=== PATIENT | male | born 1935 | race Caucasian/White ===

== ENCOUNTER → 2016-03-25 | Outpatient (CLI) | payer MEDICARE, BC, MEDICAID ==
[~2016-03-25] MED LIST: ADVIL 200MG TA200 MG PO; ALBUTEROL SULFAT3 M3 IH; ALBUTEROL0.83 MG/ML IH; ALDACTONE 25MG25 M1; ALDACTONE 25MG25 M1 PO; ALEVE 220MG220 MG PO; AMBIEN 10MG10 MG PO; ANDRO GEL TOP; ANDROGEL1% TP; ANTI-DIARRHEAL2 MG PO; ANTI-INFLAMMATORY PO; ANTIVERT 25MG25 MG PO; ANUSOL-HC SUPPO25 MG RC; ASPI325T6 PO; ASPIR-LOW81 MG PO; ASPIRIN 81M81 MG/TA2 PO; ASPIRIN E.C. 8181 MG PO; ATARAX 25MG25 MG/TAB PO; ATIVAN 1MG T1 MG/TAB PO; ATROVENT I0.2 MG/1 M IH; ATROVENT INHALE14 GM IH; AZILECT1 M1 PO; AZILECT1 MG PO; BACTRIM DS 8001 TAB PO; BENADRYL50 MG PO; BENICAR40 MG PO; BROVANA15 MCG/2 M IH; BUMEX 1MG TA1 MG/TA1 PO; BUMEX2 MG PO; BYSTOLIC10 MG PO; BYSTOLIC5 MG PO; CADUET 10 MG-201 TAB PO; CARDI-OMEGA1000 MG PO; CARDURA 2MG2 MG PO; CEPHALEXIN500 M1 PO; CETAPHIL1 CRE TP; CIPRO 250MG TA250 MG PO; COLACE 100100 MG/CAP PO; COQ10250 MG PO; COREG 6.256.25 MG/TA PO; COREG12.5 MG PO; CORTISONE; CORTISONE CREAM; COZAAR100 MG PO; CYANOCOBAL1000 MCG/2 IM; CYMBALTA 30MG30 MG PO; CYMBALTA30 MG PO; CYMBALTA60 MG PO; DEPO-TESTOS200 MG/ML IM; DITROPAN XL15 MG PO; DOXAZOCIN PO; DOXAZOSIN4 MG PO; DULCOLAX S10 MG/SUPP RC; DULCOLAX10 MG RC; EPA FISH OIL1000 MG PO; FLOMAX 0.40.4 MG/CAP PO; FLOMAX0.4 MG PO; FLONASE NASAL S16 GM INH; FLONASE NASAL S16 GM NS; FLONASEALLERGY NS; FOLIC ACID 11 MG/TA1 PO; FUROSEMIDE20 MG PO; FUROSEMIDE40 MG PO; GENTAMICIN180 MG/501 NS; GENTAMICIN180 MG/502 NS; HYDROCORTISO28.35 GM TP; HYDROCORTISON28.4 GM TP; HYZAAR; HYZAAR 50-12.1 UDTAB PO; IRON325 MG PO; K-DUR 10 MEQ T10 MEQ PO; K-DUR 2020 MEQ PO; KLOR-CON M2020 MEQ PO; LANTUS100 U/ML SC; LANTUS100 U/ML SQ; LASIX 20MG TABL20 MG PO; LASIX20 MG PO; LEVEMIR FLEX100 U/ML SQ; LEVSIN 0.10.125 MG/T PO; LEVSIN0.125 M1 PO; LEXAPRO 10MG10 MG PO; LOFIBRA160 MG PO; MACROBID 1100 MG/CAP PO; MASON NATURAL2000 IU PO; MELOXICAM15 MG PO; METFORMIN500 MG PO; METHYLIN PO; MILK OF MA1200 MG/5 PO; MILK OF MA400 MG/52; MILK OF MA400 MG/52 PO; MINOCYCLIN100 MG/CAP PO; MIRALAX PA17 GM/Dose PO; MIRAPEX 0.0.125 MG/T PO; MIRAPEX 1MG PO; MIRAPEX PO; MIRAPEX0.5 MG PO; MOBIC 7.5MG7.5 MG PO; MUCINEX 60600 MG/TA1 PO; NATURE'S BL400 IU/ML PO; NEPHROCAP PO; NIACIN PO; NIACIN500 MG PO; NORCO 325 MG-101 TAB PO; NORCO 325 MG-51 TAB PO; NORCO 325 MG-7.1 TAB PO; NORVASC 5MG5 MG/TAB PO; NS INT FLUSH 1010 ML IV; OMEPRAZOLE40 MG PO; POTASSIUM CH2 MEQ/ML PO; PRAMIPEXOLE PO; PREDNISONE20 MG PO; PRIL40 PO; PRILOSEC40 MG PO; PROVIGIL200 MG PO; PROZAC 10MG10 MG PO; PROZAC 20MG20 MG PO; PULMICORT0.5 MG/2 M IH; PYRIDIUM 100MG100 MG PO; RAPAFLO8 MG PO; RESTORIL 1515 MG/CAP PO; RESTORIL30 MG PO; ROXICODONE 55 MG/TAB PO; SENNA-LAX8.6 MG PO; SENNA8.6 MG PO; SENOKOT S 50 MG1 TAB PO; SENOKOT8.6 MG PO; SEPTRA DS 8001 TAB PO; SINEMET 10/101 UDTAB PO; SINEMET 25/101 UDTAB PO; SINEMET CR1 UDTAB.S1 PO; SINEQUAN 1010 MG/CAP PO; SINGULAIR 110 MG/TAB PO; SPIRONOLACTONE50 MG PO; SYNTHROID0.05 MG/TA PO; TEFLARO400 MG IV; TOVIAZ4 MG PO; TRAZODONE50 MG PO; TRIAMCINOLONE AC0.13 TP; TRICOR145 MG PO; TRIPLE ANTIBIOT1 O19 TP; TYLENOL 325MG325 MG PO; TYLENOL 500MG500 MG PO; TYLENOL 8 HR PO; VANCOCIN H250 MG/CAP PO; VANCOMYCIN750 MG/150 IV; VITAMIN B COMPL1 T16 PO; VITAMIN B COMPL1 TA1 PO; VITAMIN C500 MG PO; VITAMIN D 1001000 IU PO; VITAMIN D 400400 IU PO; VITAMIN D2000 I1 PO; VITAMIN D32000 IU PO; WELLBUTRIN 100100 MG PO; WELLBUTRIN 75MG75 MG PO; XANAX .25M0.25 MG/TA PO; XANAX 0.5MG0.5 MG PO; XOPENEX 1.1.25 MG/3 IH; XOPENEX1.25 MG/0. IH; XYZAL5 MG PO; ZANTAC 150MG T150 MG PO; ZAROXOLYN 2.52.5 MG PO; ZOFRAN 4MG T4 MG/TAB PO; ZYRTEC 10MG10 MG PO; [UNRECOGNIZED DRUG - CODE] IV; [UNRECOGNIZED DRUG - OTHER] PO; [UNRECOGNIZED DRUG - OTHER] TP
[2016-03-25 12:15] LABS: CALCIUM 9.9 mg/dL (8.4-10.2); CREATININE, serum 1.73 mg/dL (0.66-1.25)
== END ==
LOC: ZCOL.LAB 11:34
DX: N18.4 Chronic kidney disease, stage 4 (severe) (principal); R60.0 Localized edema; I10 Essential (primary) hypertension

== ENCOUNTER → 2016-04-16 | Outpatient (CLI) | payer MEDICARE, BC, MEDICAID ==
[2016-04-16 12:13] LABS: CALCIUM 9.7 mg/dL (8.4-10.2); CREATININE, serum 2.52 mg/dL (0.66-1.25); POTASSIUM 4.5 mmol/L (3.4-5.0)
== END ==
LOC: ZCOL.LAB 10:37
PROVIDERS: Internal Medicine
DX: R60.9 Edema, unspecified (principal)

== ENCOUNTER → 2016-05-12 | Outpatient (CLI) | payer MEDICARE, BC, MEDICAID ==
[2016-05-12 10:51] LABS: BASO % 0.4 % (0.0-2.0); EOS # 0.2 (0.0-0.7); EOS % 3.1 % (0-4.0); GRAN # 5.4 (1.4-6.5); GRAN % 80.7 % (42.2-75.2); HEMATOCRIT 40.3 % (42.0-52.0); HEMOGLOBIN 12.9 g/dl (13.5-18.0); LYMPH # 0.6 (1.2-3.4); LYMPH % 8.4 % (20.0-51.0); MEAN CELL VOLUME 97 fl (80.0-100.0); MEAN CORPUSCULAR HEMOGLOBIN 31 pg (27.0-31.0); MEAN CORPUSCULAR HGB CONC 32 g/dl (33.0-37.0); MEAN PLATELET VOLUME 10.7 fl (7.4-10.4); MONO # 0.5 (0.1-0.6); PLATELET COUNT 205 K/mm3 (130-400); RED BLOOD COUNT 4.16 M/mm3 (4.20-5.60); REDCELL DISTRIBUTION WIDTH-CV 15.1 % (11.5-14.5); WHITE BLOOD COUNT 6.7 K/mm3 (4.8-10.8)
[2016-05-12 11:25] LABS: ADJUSTED CALCIUM 10.2 mg/dL (8.4-10.2); ALBUMIN 3.6 gm/dL (3.5-5.0); BILIRUBIN,TOTAL 0.7 mg/dL (0.0-1.0); CALCIUM 9.9 mg/dL (8.4-10.2); CREATININE, serum 1.74 mg/dL (0.66-1.25); TOTAL PROTEIN 6.5 gm/dL (6.4-8.2)
[2016-05-12 11:56] LABS: THYROID STIMULATING HORMONE 5.14 uIU/mL (0.465-4.680)
[2016-05-12 13:38] LABS: PSA-TOTAL 0.41 ng/mL (0-4)
== END ==
LOC: ZCOL.LAB 10:16
PROVIDERS: Internal Medicine
DX: Z01.89 Encounter for other specified special examinations (principal)
CPT/HCPCS: G0103

== ENCOUNTER → 2016-05-29 | Outpatient (CLI) | payer MEDICARE, BC, MEDICAID ==
[2016-05-29 13:29] LABS: CALCIUM 10.1 mg/dL (8.4-10.2); CREATININE, serum 1.94 mg/dL (0.66-1.25)
== END ==
LOC: ZCOL.LAB 13:06
PROVIDERS: Internal Medicine Nephrology
DX: Z01.89 Encounter for other specified special examinations (principal)

== ENCOUNTER → 2016-06-02 | Outpatient (CLI) | payer MEDICARE, BC, MEDICAID ==
[2016-06-02 18:14] LABS: PH 7 (5-8); SQUAMOUS EPITHELIAL None Seen /hpf; URINE APPEARANCE Clear; URINE BACTERIA None Seen /hpf; URINE BILIRUBIN Negative (NEGATIVE); URINE BLOOD Negative (NEGATIVE); URINE COLOR Yellow; URINE GLUCOSE Negative (NEGATIVE); URINE KETONE Negative (NEGATIVE); URINE RBC 0-2 /hpf; URINE UROBILINOGEN Negative (NEGATIVE); URINE WBC None Seen /hpf
== END ==
LOC: ZCOL.LAB 17:50
PROVIDERS: Internal Medicine
DX: N18.4 Chronic kidney disease, stage 4 (severe) (principal)

== ENCOUNTER 2016-06-03 15:34 | Observation (INO) | payer MEDICARE, BC, MEDICAID ==
[~2016-06-03] VITALS: Ht 154.9 cm; Wt 110.3 kg
[~2016-06-03 15:34] MED LIST changes: -XYZAL5 MG PO
[2016-06-03 16:08] LABS: ARTERIAL BLD GAS O2 SATURATION 93.9 % (92-100); ARTERIAL BLD GAS TCO2 CT 32.4; ARTERIAL BLOOD GAS BASE EXCESS 8.4 (-2-2); ARTERIAL BLOOD GAS HCO3 31.3 meq/L (22-26); ARTERIAL BLOOD GAS PHT 7.55 C (7.35-7.45); ARTERIAL BLOOD GAS PO2 69.5 mmHg (80-100); ARTERIAL BLOOD GAS PO2T 69.5 (80-100); ARTERIAL BLOOD GAS pH 7.55 (7.35-7.45); OXYHEMOGLOBIN 92.5 %
[2016-06-03 16:09] LABS: ALLEN TEST YES; ALLENS TEST RESULT PASS; ATS? YES
[2016-06-03 17:36] LABS: BASO % 0.4 % (0.0-2.0); EOS % 0.2 % (0-4.0); GRAN # 9.7 (1.4-6.5); GRAN % 87.7 % (42.2-75.2); HEMATOCRIT 40.2 % (42.0-52.0); HEMOGLOBIN 13.1 g/dl (13.5-18.0); LYMPH # 0.5 (1.2-3.4); LYMPH % 4.4 % (20.0-51.0); MEAN CELL VOLUME 96 fl (80.0-100.0); MEAN CORPUSCULAR HEMOGLOBIN 31 pg (27.0-31.0); MEAN CORPUSCULAR HGB CONC 33 g/dl (33.0-37.0); MONO # 0.8 (0.1-0.6); MONO % 6.8 % (1.7-9.3); PLATELET COUNT 266 K/mm3 (130-400); RED BLOOD COUNT 4.17 M/mm3 (4.20-5.60); REDCELL DISTRIBUTION WIDTH-CV 14.9 % (11.5-14.5); WHITE BLOOD COUNT 11.1 K/mm3 (4.8-10.8)
[2016-06-03 17:39] LABS: ADJUSTED CALCIUM 10.3 mg/dL (8.4-10.2); ALBUMIN 3.9 gm/dL (3.5-5.0); CALCIUM 10.2 mg/dL (8.4-10.2); CREATININE, serum 2.43 mg/dL (0.66-1.25); POTASSIUM 3.3 mmol/L (3.4-5.0); TOTAL PROTEIN 7.2 gm/dL (6.4-8.2)
[2016-06-03 17:47] LABS: INR 1.3 (0.8-3.0)
[2016-06-03 17:50] LABS: PARTIAL THROMBOPLASTIN TIME 25.8 SECONDS (26.0-37.0); TROPONIN-I 0.033 ng/mL (0.000-0.034)
[2016-06-03 18:08] LABS: PH 7 (5-8); SQUAMOUS EPITHELIAL 0-2 /hpf; URINE APPEARANCE Clear; URINE BACTERIA None Seen /hpf; URINE BILIRUBIN Negative (NEGATIVE); URINE BLOOD Negative (NEGATIVE); URINE COLOR Yellow; URINE GLUCOSE Negative (NEGATIVE); URINE KETONE Trace (NEGATIVE); URINE RBC 0-2 /hpf; URINE UROBILINOGEN Negative (NEGATIVE)
[2016-06-03] MEDS ORDERED: NORCO 325 MG-7.1 TAB PO (18:28)
[2016-06-03] MEDS ORDERED: XYZAL5 MG PO (18:29)
[2016-06-03] MEDS ORDERED: ANTI-DIARRHEAL2 MG PO (20:31)
[2016-06-03] MEDS ORDERED: XOPENEX 1.1.25 MG/3 IH (20:32)
[2016-06-03 21:37] VITALS: BP 119/39; PULSE 98; TEMP 100.4
[2016-06-04 00:53] VITALS: BP 119/48; PULSE 90; TEMP 99
[2016-06-04 03:20] VITALS: BP 129/46; PULSE 91; TEMP 99.1
[2016-06-04 08:15] LABS: BASO % 0.3 % (0.0-2.0); EOS % 0.3 % (0-4.0); GRAN # 9.2 (1.4-6.5); GRAN % 86.9 % (42.2-75.2); LYMPH # 0.5 (1.2-3.4); LYMPH % 4.6 % (20.0-51.0); MEAN CELL VOLUME 97 fl (80.0-100.0); MEAN CORPUSCULAR HGB CONC 32 g/dl (33.0-37.0); MEAN PLATELET VOLUME 10.2 fl (7.4-10.4); MONO # 0.8 (0.1-0.6); MONO % 7.4 % (1.7-9.3); PLATELET COUNT 244 K/mm3 (130-400); RED BLOOD COUNT 3.64 M/mm3 (4.20-5.60); REDCELL DISTRIBUTION WIDTH-CV 14.9 % (11.5-14.5); WHITE BLOOD COUNT 10.6 K/mm3 (4.8-10.8)
[2016-06-04 08:25] LABS: HEMATOCRIT 35.3 % (42.0-52.0); HEMOGLOBIN 11.4 g/dl (13.5-18.0); MEAN CORPUSCULAR HEMOGLOBIN 31 pg (27.0-31.0)
[2016-06-04 08:26] VITALS: BP 116/40; PULSE 86; TEMP 98.7
[2016-06-04 08:28] LABS: ALBUMIN 3.5 gm/dL (3.5-5.0); CALCIUM 9.4 mg/dL (8.4-10.2); CREATININE, serum 2.07 mg/dL (0.66-1.25); PHOSPHOROUS 2.9 mg/dL (2.5-4.5)
[2016-06-04 08:40] LABS: POTASSIUM 2.9 mmol/L (3.4-5.0)
[2016-06-04 13:12] VITALS: BP 113/42; PULSE 88; TEMP 97.1
[2016-06-04 13:21] VITALS: BP 113/42; PULSE 88; TEMP 97.1
== END 2016-06-04 14:45 | disposition home or self-care (01) ==
LOC: COL.ER 15:34 → MEDICAL 17:53
PROVIDERS: Family Medicine; Internal Medicine Nephrology
DX: I50.9 Heart failure, unspecified (principal); I50.20 Unspecified systolic (congestive) heart failure; N17.9 Acute kidney failure, unspecified; E87.6 Hypokalemia; E11.9 Type 2 diabetes mellitus without complications; E87.3 Alkalosis; I12.9 Hypertensive chronic kidney disease with stage 1 through stage 4 chronic kidney disease, or unspecified chronic kidney disease; N18.4 Chronic kidney disease, stage 4 (severe)
CPT/HCPCS: G0378; G0463; J1815; J7030